=== PATIENT | male | born 1980 | race Caucasian/White ===

== ENCOUNTER 2017-05-18 12:58 | Emergency (ER) | payer OTHER ==
[2017-05-18] MEDS ORDERED: RX INFO: IV CONTRAST WAS GIVEN 1 EACH MISC MISCELLANE PRN (13:04)
[2017-05-18] MEDS ORDERED: DIPH,PERTUS(ACELL)TETVAC-LF 0.5 ML VIAL IM ONE (13:11)
[2017-05-18 13:18] LABS: Glucose,Whole Blood 97 mg/dL (75-99)
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
[2017-05-18 13:30] LABS: Basophils % (A) 1 %; CHCM 35.7; Eosinophils # (A) 0.1 k/uL (0-0.7); Eosinophils % (A) 2 %; HCT 41.8 % (39.0-53.0); HDW 2.79; HGB 14.8 gm/dL (13.0-17.5); Luc # (Auto) 0.17; Luc % (Auto) 3; Lymphocytes # (A) 1.8 k/uL (1.0-4.8); Lymphocytes % (A) 25 %; MCH 29.9 pg (25.0-35.0); MCHC 35.5 g/dL (31.0-37.0); MCV 84.3 fL (80.0-100.0); Mean Platelet Volume 7.2; Monocytes # (A) 0.4 k/uL (0-1.0); Monocytes % (A) 5 %; Neutrophils # (A) 4.6 k/uL (1.3-7.7); Neutrophils % (A) 65 %; RBC 4.95 m/uL (4.30-5.90); RDW 12.5 % (11.5-15.5)
[2017-05-18 13:31] LABS: ALT 38 U/L (21-72); AST 26 U/L (17-59); Alcohol <10 mg/dL; Alkaline Phosphatase 48 U/L (38-126); Amylase 52 U/L (30-110); Anion Gap 11 mmol/L; Blood Urea Nitrogen 16 mg/dL (9-20); Calcium 9.1 mg/dL (8.4-10.2); Carbon Dioxide 22 mmol/L (22-30); Chloride 107 mmol/L (98-107); Glucose 122 mg/dL (74-99); Non-African American GFR(MDRD) >60 (>60 ml/min/1.73 sqM); Potassium 3.5 mmol/L (3.5-5.1); Sodium 140 mmol/L (137-145); Total Bilirubin 0.4 mg/dL (0.2-1.3); Total Protein 6.5 g/dL (6.3-8.2)
[2017-05-18 13:33] LABS: INR 1.1 (<1.2); Prothrombin Time 10.6 sec (9.0-12.0)
[2017-05-18 13:40] LABS: Creatine Kinase 160 U/L (55-170); Partial Thromboplastin Time 22.5 sec (22.0-30.0)
[2017-05-18 13:54] LABS: Creatine Kinase MB 1.5 ng/mL (0.0-2.4); Troponin I <0.012 ng/mL (0.000-0.034)
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
--- NOTE | 2017-05-18 14:36 | XR ---
Exam: X-ray complete bilateral TECHNIQUE: 10 views of both ankles were obtained. FINDINGS: There is a questionable fracture along the medial aspect of the talus on the left. There is soft tiss ue swelling near the medial malleolus. The ankle mortise is intact. In the right ankle there is a fracture of the lateral aspect of the talus with soft tissue swelling n oted lateral to the lateral malleolus. IMPRESSION: Suspected fractures of the medial left proximal talus and of the lateral right proximal talus.
--- NOTE | 2017-05-18 14:38 | XR ---
Exam: Bilateral tibia and fibula complete TECHNIQUE: 10 views of both tibias and fibulas were identified. FINDINGS: Left: Suspected fracture within the talus is again identified. No other abnormalities identified. Right: Suspected fracture of the talus is again identified. No other acute abnormalities identified. IMPRESSION: Fractures of both taluses are again noted. Please see the ankles dictation.
[2017-05-18] MEDS ORDERED: SODIUM CHLORIDE 0.9% 500 ML IV STA (14:45)
[2017-05-18] MEDS ORDERED: HYDROmorphone 1 MG/ML 1 ML SYRINGE IVP STA (14:45)
[2017-05-18 14:58] LABS: Appearance,Urine Clear (Clear); Bilirubin,Urine Negative (Negative); Glucose,Urine (UA) Negative (Negative); Ketones,Urine Negative (Negative); Leukocyte Esterase,Urine Negative (Negative); Mucus,Urine Rare /hpf; Nitrite,Urine Negative (Negative); PH, Urine 6.5 (5.0-8.0); Particle Count 356; Protein,Urine Negative (Negative); RBC,Urine 32 /hpf (0-5); Specific Gravity,Urine 1.013 (1.001-1.035); UA Billing (MACRO vs. MICRO) MICRO; Urobilinogen,Urine <2.0 mg/dL (<2.0); WBC,Urine 2 /hpf (0-5)
[2017-05-18 17:12] VITALS: BP 134/58; PULSE 83; RESP 18; TEMP 98.6
== END 2017-05-18 16:35 | disposition other institution (70) ==
LOC: EC 12:58
DX: S92.102A Unspecified fracture of left talus, initial encounter for closed fracture (principal); S92.101A Unspecified fracture of right talus, initial encounter for closed fracture; S92.352A Displaced fracture of fifth metatarsal bone, left foot, initial encounter for closed fracture; S92.252A Displaced fracture of navicular [scaphoid] of left foot, initial encounter for closed fracture; S50.811A Abrasion of right forearm, initial encounter; Z23 Encounter for immunization; Z79.899 Other long term (current) drug therapy; V53.5XXA Driver of pick-up truck or van injured in collision with car, pick-up truck or van in traffic accident, initial encounter
CPT/HCPCS: 99291 ×2; 29515 ×4; 96374 ×2; 96361 ×2; 90471 ×2; 36415; 86900; 86901; 80053; 82150; 82550; 82553; 83605; 83690; 84484; 85025; 85610; 85730; 86850; 81001; 80306; 80320; 71010; 73610; 73630; 73590; 72170; 72125; 70450; 71260; 74177; 90715; J1170; Q9967